=== PATIENT | female | born 1960 | race Asian ===

== ENCOUNTER 2016-05-23 07:57 | Day surgery (SDC) | payer BC ==
[2016-05-22 14:29] VITALS: BMI 25.5
[2016-05-23] VITALS (11 sets, daily range): BP systolic 90–118; BP diastolic 54–76; PULSE 66–73; RESP 13–27; Ht 168.9 cm; Wt 74.3 kg
[~2016-05-23] VITALS: Ht 168.9 cm; Wt 74.3 kg
[2016-05-23] MEDS ORDERED: traMADOL 50 MG TAB X 1 DOSE PO ONE (08:00)
[2016-05-23] MEDS ORDERED: LACTATED RINGER'S 1,000 ML IV SCH (08:00)
[2016-05-23] MEDS ORDERED: oxyCODONE (CR) 10 MG TAB [oxyCONTIN] X1 DOSE PO ONE (08:00)
[2016-05-23] MEDS ORDERED: PREGABALIN 300 MG PO X1 PO ONE (08:00)
[2016-05-23] MEDS ORDERED: CEFAZOLIN 2GM/50 ML (PMX) 50 ML X1 BEFORE INCISION IVPB ONE (08:00)
[2016-05-23] MEDS ORDERED: CELECOXIB 400 MG PO X1 DOSE PO ONE (08:00)
[2016-05-23] MEDS ORDERED: PROPOFOL 20 ML ONE (08:11)
[2016-05-23] MEDS ORDERED: ROCURONIUM 50 MG INJ ONE (08:11)
[2016-05-23] MEDS ORDERED: GLYCOPYRROLATE 0.4 MG INJ ONE (08:11)
[2016-05-23] MEDS ORDERED: MIDAZOLAM 1 MG/ML 2 ML INJ ONE (08:11)
[2016-05-23] MEDS ORDERED: CEFAZOLIN 1 GM INJ ONE ×2 (08:11→10:17)
[2016-05-23] MEDS ORDERED: NEOSTIGMINE 3 MG/3 ML SYRINGE ONE (08:11)
[2016-05-23] MEDS ORDERED: FENTAnyl 50 MCG/ML VIAL ONE (08:12)
[2016-05-23] MEDS ORDERED: ONDANSETRON 4 MG INJ ONE (08:12)
[2016-05-23] MEDS ORDERED: DEXAMETHASONE 4 MG/ML 1 ML INJ ONE (08:12)
[2016-05-23] MEDS ORDERED: LISI20TA11 PO (08:22)
[2016-05-23] MEDS ORDERED: LIDOCAINE 1%/EPI 30 ML INJ ONE (09:43)
[2016-05-23] MEDS ORDERED: morphine SULFATE/PF (10 MG/10 ML) INJ ONE (09:44)
[2016-05-23] MEDS ORDERED: KETOROLAC 30 MG INJ ONE ×2 (09:44→09:56)
--- NOTE | 2016-05-23 09:48 | HPN ---
Date/Time of Note Date/Time of Note DATE: 05/23/16 TIME: 09:47 Interval H&P Admission Note Pt. seen H&P reviewed: No system changes No change from H&P on 05/10/16 by WASHINGTON Gottlieb MD May 23, 2016 09:47
[2016-05-23] MEDS: ROPIVACAINE 0.5 % 30 ML VIAL ONE ×2 (10:10→10:58)
[2016-05-23] MEDS ORDERED: ONDANSETRON 4 MG INJ IV PRN ×2 (10:30)
[2016-05-23] MEDS ORDERED: MIDAZOLAM 1 MG/ML 2 ML INJ IV PRN ×2 (10:30)
[2016-05-23] MEDS ORDERED: TRIMETHOBENZAMIDE 100 MG/ML VIAL IM PRN ×2 (10:30)
[2016-05-23] MEDS ORDERED: DIPHENHYDRAMINE 50 MG INJ IV PRN ×2 (10:30)
[2016-05-23] MEDS ORDERED: FENTAnyl 50 MCG/ML VIAL IV PRN ×6 (10:30)
[2016-05-23] MEDS ORDERED: HYDROmorphONE (0.2 MG/ML) 10ML SYG IV PRN ×6 (10:30)
[2016-05-23] MEDS ORDERED: EPHEDrine SULFATE 50 MG/5 ML SYG IV PRN ×2 (10:30)
[2016-05-23] MEDS ORDERED: LABETALOL HCL 20MG INJ IV PRN ×2 (10:30)
[2016-05-23] MEDS ORDERED: MEPERIDINE 25 MG INJ IV PRN ×2 (10:30)
[2016-05-23] MEDS ORDERED: hydrALAzine 20 MG INJ IV PRN ×2 (10:30)
[2016-05-23] MEDS ORDERED: METOCLOPRAMIDE 10 MG INJ ONE (10:53)
--- NOTE | 2016-05-23 11:15 | OPR ---
Date/Time of Note Date/Time of Note DATE: 05/23/16 TIME: 11:14 Operative Report Free Text/Dictation Dictation # [id number] Procedure Date: May 23, 2016 Preoperative Diagnosis Right Knee PHMM Tear Postoperative Diagnosis Same Operation Performed Right Knee A/S and Partial MM Surgeon: WASHINGTON BUTTS MD clinical assistant professor: EMILEE STAUFFER PA-C Anesthesia: general Anesthesiologist: Carlos Henson M.D. Tourniquet Time: None Estimated Blood Loss: minimal Specimens None Tubes/Drains None Complications: None Pt Condition Post Procedure: stable Disposition: PACU WASHINGTON BUTTS MD May 23, 2016 11:15
--- NOTE | 2016-05-23 11:43 | OPR ---
DATE OF OPERATION: 05/23/2016 PREOPERATIVE DIAGNOSIS: Right knee medial meniscus tear. POSTOPERATIVE DIAGNOSIS: Right knee medial meniscus tear. OPERATION PERFORMED: Right knee arthroscopy, partial medial meniscectomy. SURGEON: Washington Vail MD TOOL GRINDER SET UP OPERATOR GEAR: REBA Ramos ANESTHESIA: General endotracheal intubation. ANESTHESIOLOGIST: Dr. Henson TOURNIQUET TIME: 0 minutes. ESTIMATED BLOOD LOSS: 0 mL. INTRAVENOUS FLUIDS: 800 mL crystalloid. SPECIMENS: None. DRAINS: None. COMPLICATIONS: None. DISPOSITION: The patient tolerated the procedure well and was taken to the recovery room in stable condition. INDICATIONS: The patient is a 55-year-old woman who has had pain in the medial aspect of her right knee with mechanical symptoms of catching and popping. An MRI showed the abnormal signal within the posterior horn of the medial meniscus with a possible underlying tear. She has failed nonsurgical means of treatment and continued to have mechanical symptoms, I felt she would benefit from a knee a rthroscopy and partial medial meniscectomy. The risks, benefits, and alternatives of the procedure were explained in detail to the patient. I explained the risks to include, but not be limited to, b leeding, infection, pain, stiffness, neurovascular injury, possible numbness, weakness, and/or paral ysis anywhere from the knee down to the toes, fracture, ligamentous injury, need for additional futu re surgery including possible total knee arthroplasty, wound healing problems, blood clots, pulmonar y embolism, and anesthetic complications such as heart attack, stroke, GI bleed, pneumonia, and/or d eath. Ample time was allowed for the patient to ask questions, all of which were addressed and answ ered. The patient understood the risks involved and wished to proceed. Informed consent was signed prior to the procedure. DESCRIPTION OF PROCEDURE: The right knee was initialed with a marking pen [facility] to identify the correct operative site. The patient was then brought to the operating room and transferred from the [facility] to the operating table where she was anesthetized and intub ated. A time out was performed to confirm the right side was the correct operative site. She was g iven 2 g of intravenous Ancef within 1 hour prior to the incision. The superolateral aspect of the right knee was prepped with Betadine and injected with 30 mL of 0.5% ropivacaine into the knee joint . The entire right knee and lower extremity were prepped and draped in the usual sterile fashion. Standard arthroscopic portal incisions were made, one inferolateral and one inferomedial. The arthr oscope was introduced into the inferolateral portal, and the arthroscope and the arthroscopy initiat ed. The suprapatellar pouch was free of loose bodies and synovitis. The undersurface of the patell a looked healthy with no significant degenerative changes. The patella tracked well with no subluxa tion. The trochlear groove looked healthy with no significant degenerative changes. The medial and lateral gutters were inspected and free of loose bodies and synovitis. 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 The medial tibial plateau had some mild grade II chondromalacia. The medial meniscus was probed and the body and the anterior horn were intact. The posterior horn was intact. At the junction of the posterior horn and the posterior root, there was some free edge tearing of the medial meniscus. Th is was debrided back to a stable edge with the Arthrocare wand. The posterior horn was probed and w as stable. There was no subluxation at the posterior root. The inner trochlear notch was inspected and the ACL and PCL were intact with no tearing. There were no loose bodies identified posterior t o the medial femoral condyle. The lateral compartment was inspected and the lateral compartment edgard wed no degenerative changes and the lateral meniscus was intact. There were no loose bodies noted. At this point the knee was irrigated through the arthroscope until the egress of fluid was free of meniscal fragments and blood. The instruments were removed. The knee was infiltrated with a mixtur e of 0.5% ropivacaine, 4 mg Duramorph, and 30 mg Toradol. The portal incisions were closed with int errupted 3-0 Monocryl and 3-0 Prolene in a vertical mattress fashion. The skin edges were sealed wi th Dermabond. The wounds were covered with Adaptic, 4x4's, and wrapped with sterile cast padding an d an Philipp wrap. The patient was awakened, extubated, and taken to the recovery room in stable condit ion. Dictated By: WASHINGTON ALBERT/EMY Conf#: [id number] [facility]#: [id number]
[2016-05-24] MEDS ORDERED: LISINOPRIL 20 MG TAB PO SCH (09:00)
== END 2016-05-23 12:42 | disposition home or self-care (01) ==
LOC: SDS 07:57
PROVIDERS: ATTEND Orthopaedic Surgery
DX: M23.321 Other meniscus derangements, posterior horn of medial meniscus, right knee (principal); I10 Essential (primary) hypertension; E03.9 Hypothyroidism, unspecified; M94.20 Chondromalacia, unspecified site
CPT/HCPCS: 29881; 87081; J0690; J1100; J1885; J2250; J2274; J2405; J2710; J2795; J3010; J2765

== ENCOUNTER → 2016-05-31 | Outpatient (CLI) | payer BC ==
[~2016-05-31] MED LIST: LISI20TA11 PO
--- NOTE | 2016-05-31 11:57 | HKNOTE ---
DATE OF SERVICE: 05/31/2016 INTERVAL HISTORY: The patient presents today for her first postoperative evaluation of her right knee. She is 1 week status post right knee arthroscopy and partial medial meniscectomy. She is doing well overall. She denies any significant pain, is ambulating without any assistive devices. She does have some ecchymosis along the medial portal hole, but denies any significant swelling, erythema or warmth. She denies any fevers or chills. She is doing well overall. She presents today for her first postoperative evaluation. PHYSICAL EXAMINATION: Today, she is alert and oriented x4 and in no acute distress. Examination of the right knee demonstrates sutures to be in place. Range of motion is 0 to 130 degrees. There is some mild ecchymosis along the medial portal, but there is no erythema or warmth noted. There is no significant effusion. Varus and valgus forces are stable. Homans sign is negative. Compartments are soft. She is neurovascularly intact distally. ASSESSMENT: One week status post right knee arthroscopy and medial meniscectomy , doing well. PLAN: The sutures were removed today and Steri-Strips were applied. She is to continue weightbearing as tolerated, but avoid any twisting motion. We will begin outpatient physical therapy to focus on strengthening as well as improving her range of motion. She will follow up in 4 weeks for repeat evaluation. Dictated By: EMILEE BRITTON for WASHINGTON BOLAND/EMY Conf#: [id number] DID#: [id number] MTDD
== END | disposition home or self-care (01) ==
LOC: HKI 09:54 → MERGE 10:00
PROVIDERS: ATTEND Orthopaedic Surgery
DX: Z47.89 Encounter for other orthopedic aftercare (principal); S83.241D Other tear of medial meniscus, current injury, right knee, subsequent encounter

== ENCOUNTER → 2016-07-05 | Outpatient (CLI) | payer BC | END | disposition home or self-care (01) | LOC: HKI 09:00 | PROVIDERS: ATTEND Orthopaedic Surgery | DX: Z47.89 Encounter for other orthopedic aftercare (principal); S83.231D Complex tear of medial meniscus, current injury, right knee, subsequent encounter ==